=== PATIENT | male | born 1985 | race African-American/Black ===

== ENCOUNTER 2018-07-03 18:15 | Emergency (ER) | payer SELFPAY ==
[~2018-07-03] VITALS: Ht 182.9 cm; Wt 111.4 kg
[2018-07-03 18:43] VITALS: Ht 182.9 cm; Wt 111.4 kg
[2018-07-03] MEDS ORDERED: DICLOFENAC SODI50 MG PO (19:48)
[2018-07-03 20:03] VITALS: BP 132/85
== END 2018-07-03 20:16 | disposition home or self-care (01) ==
LOC: D.ER 18:15
DX: M25.531 Pain in right wrist (principal); M25.831 Other specified joint disorders, right wrist; F17.200 Nicotine dependence, unspecified, uncomplicated